=== PATIENT | female | born 2000 | race Two or more races ===

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

== ENCOUNTER 2022-06-30 20:02 | Emergency (ER) | payer OTHER ==
[~2022-06-30] VITALS: Ht 162.6 cm; Wt 59.0 kg
[2022-06-30] MEDS ORDERED: ZOLOFT50 MG PO (21:14)
[2022-06-30] MEDS ORDERED: TRI-LO-SPRINTE1 EACH PO (21:15)
== END 2022-06-30 23:26 | disposition home or self-care (01) ==
LOC: ER 20:02
DX: S00.93XA Contusion of unspecified part of head, initial encounter (principal); X58.XXXA Exposure to other specified factors, initial encounter; Y93.9 Activity, unspecified; Y92.9 Unspecified place or not applicable; Y99.9 Unspecified external cause status

== ENCOUNTER 2022-07-10 10:45 | Outpatient (CLI) | payer OTHER ==
[~2022-07-10 10:45] MED LIST changes: +TRI-LO-SPRINTE1 EACH PO; +ZOLOFT50 MG PO
== END 2022-07-10 10:55 | disposition home or self-care (01) ==
LOC: RAD 10:45
PROVIDERS: ATTEND Pediatrics
DX: J32.9 Chronic sinusitis, unspecified (principal)

== ENCOUNTER 2025-08-21 11:28 | Outpatient (CLI) | payer OTHER | END 2025-08-21 11:31 | disposition home or self-care (01) | LOC: TOM 11:28 | PROVIDERS: ATTEND Otolaryngology Otology & Neurotology | DX: J34.1 Cyst and mucocele of nose and nasal sinus (principal) ==